=== PATIENT | female | born 1960 | race Caucasian/White ===

== ENCOUNTER 2017-01-19 11:38 | Emergency (ER) | payer OTHER ==
[~2017-01-19] VITALS: Ht 152.4 cm; Wt 88.0 kg
[2017-01-19] MEDS ORDERED: CARTIA XT120 MG PO (17:02)
[2017-01-19] MEDS ORDERED: GLUCOPHAGE XR500 MG PO (17:03)
[2017-01-19] MEDS ORDERED: CENTRUM ADULTS1 EACH PO (17:03)
[2017-01-19] MEDS ORDERED: LIPITOR10 MG PO (17:04)
[2017-01-19] MEDS ORDERED: PEPCID AC10 MG PO (17:04)
== END 2017-01-19 17:00 | disposition short-term general hospital (02) ==
LOC: ER 11:38 → RT 11:40 → ER 17:00
DX: R07.9 Chest pain, unspecified (principal); F17.210 Nicotine dependence, cigarettes, uncomplicated; Z79.84 Long term (current) use of oral hypoglycemic drugs; Z79.899 Other long term (current) drug therapy; Z90.49 Acquired absence of other specified parts of digestive tract; Z88.0 Allergy status to penicillin; Z88.1 Allergy status to other antibiotic agents; Z88.5 Allergy status to narcotic agent; Z88.6 Allergy status to analgesic agent; Z88.8 Allergy status to other drugs, medicaments and biological substances; Z98.890 Other specified postprocedural states